=== PATIENT | male | born 1985 | race Caucasian/White ===

== ENCOUNTER 2016-08-30 09:28 | Emergency (ER) | payer OTHER ==
[~2016-08-30 09:28] MED LIST: TRAZODONE50 MG PO
[2016-08-30 09:35] VITALS: BP 119/79
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
== END 2016-08-30 11:17 ==
LOC: ERH
DX: F10.129 Alcohol abuse with intoxication, unspecified (principal)

== ENCOUNTER 2016-09-08 02:51 | Emergency (ER) | payer OTHER ==
[~2016-09-08] VITALS: Ht 182.9 cm; Wt 79.4 kg
--- NOTE | 2016-09-08 02:55 | ED AMS/SEIZURE/WEAK/DIZZY ---
History of Present Illness General Chief Complaint: Altered Mental Status Stated Complaint: AMS Source: patient Exam Limitations: no limitations Vital Signs & Intake/Output Vital Signs & Intake/Output Vital Signs Date Time Temp Pulse Resp B/P B/P Pulse O2 O2 Flow FiO2 Mean Ox Delivery Rate 09/08 0802 96.0 90 20 100/60 98 Room Air 09/08 0532 96.8 93 16 154/77 99 Nasal 3.0L Cannula 09/08 0419 102 16 173/91 100 Room Air 3.0L 09/08 0253 97.9 118 16 149/101 96 Nasal 3.0L Cannula Allergies Coded Allergies: NO KNOWN ALLERGIES (12/28/14) Reconcile Medications TRAZODONE HCL (Trazodone HCl) 50 MG TAB 1 TAB PO QHS Sleep Triage Nurses Notes Reviewed? yes Onset: Abrupt Duration: hour(s): Timing: recent history Injury Environment: home Severity: moderate Modifying Factors: Improves With: rest. Associated Symptoms: increased confusion HPI: 31-year-old gentleman brought in by ambulance due to mental status change, increased confusion. The medics state that his mother called the ambulance because of his increased confusion. The patient states that he drank alcohol, did ecstasy, did cocaine tonight. His mother found him confused and slightly agitated. (JACLYN CASH,BENJIE Burns) Past History Travel History Traveled to [place] past 21 day No Medical History Any Pertinent Medical History? see below for history Neurological: NONE EENT: NONE Cardiovascular: NONE Respiratory: NONE Gastrointestinal: NONE Hepatic: NONE Renal: NONE Musculoskeletal: NONE Psychiatric: NONE Endocrine: NONE Blood Disorders: NONE Cancer(s): NONE PASTRY ASSISTANT/Reproductive: NONE Surgical History Surgical History: N Psychosocial History Who do you live with Family Services at Home None What is your primary language Marshallese Family History Hx Contributory? No (JACLYN CASH,BENJIE Burns) Review of Systems Review of Systems Constitutional: Reports: no symptoms. EENTM: Reports: no symptoms. Respiratory: Reports: no symptoms. Cardiovascular: Reports: no symptoms. GI: Reports: no symptoms. Genitourinary: Reports: no symptoms. Musculoskeletal: Reports: no symptoms. Skin: Reports: no symptoms. Neurological/Psychological: Reports: no symptoms. Hematologic/Endocrine: Reports: no symptoms. Immunologic/Allergic: Reports: no symptoms. All Other Systems: Reviewed and Negative (JACLYN CASH,BENJIE Burns) Physical Exam Physical Exam General Appearance: agitated Head: atraumatic, normal appearance Eyes: Bilateral: normal appearance. Ears, Nose, Throat: normal pharynx, normal ENT inspection Neck: normal inspection, supple, full range of motion Respiratory: normal breath sounds, chest non-tender, no respiratory distress, quiet respiration, lungs clear Cardiovascular: regular rate/rhythm Gastrointestinal: normal bowel sounds, soft, non-tender Back: normal inspection, normal range of motion Extremities: normal range of motion, evidence of injury Neurologic/Psych: no motor/sensory deficits, awake, alert, agitated, disoriented , confused Core Measures ACS in differential dx? No CVA/TIA Diagnosis: No Severe Sepsis Present: No Septic Shock Present: No (JACLYN CASH,BENJIE Burns) Progress Differential Diagnosis: alcohol intoxication, CVA/stroke, dehydration, encephalitis, hypoglycemia, intracranial Hem., presyncope Plan of Care: Orders Procedure Date/time Status Regular Diet 09/08 B Active URINE DRUGS OF ABUSE 09/08 254 Complete ACETOMINOPHEN 09/08 254 Complete TROPONIN LEVEL 09/08 254 Complete SALICYLATE 09/08 254 Complete ETHANOL 09/08 254 Complete COMPREHENSIVE METABOLIC PANEL 09/08 254 Complete CBC WITHOUT DIFFERENTIAL 09/08 254 Complete EKG 09/08 254 Active Laboratory Tests 09/08/16 0421: Ref Lab Test Result Pending, Urine Opiates Screen < 100.00, Methadone Screen 44, Barbiturate Screen < 60, Ur Phencyclidine Scrn < 6.00, Amphetamines Screen , U Benzodiazepines Scrn > 800 H, Urine Cocaine Screen < 50, Urine Cannabis Screen < 5.00 09/08/16 0320: Anion Gap 15, Estimated GFR > 60, BUN/Creatinine Ratio 7.8, Glucose 88, Calcium 8.8, Total Bilirubin 0.7, AST 24, ALT 23, Alkaline Phosphatase 69, Troponin I < 0.01, Total Protein 7.6, Albumin 4.7, Globulin 2.9, Albumin/Globulin Ratio 1.6, CBC w Diff NO MAN DIFF REQ, RBC 5.25, MCV 91.8, MCH 30.9, RDW 14.6 H, MPV 8.3, Gran % 83.9 H, Lymphocytes % 10.2 L, Monocytes % 5.2, Eosinophils % 0.1, Basophils % 0.6, Absolute Granulocytes 10.9 H, Absolute Lymphocytes 1.3, Absolute Monocytes 0.7 H, Absolute Eosinophils 0, Absolute Basophils 0.1, PUBS MCHC 33.7, Salicylates < 1.0, Acetaminophen < 10.0 L, Serum Alcohol < 10.0 Diagnostic Imaging: Viewed by Me: CT Scan. Discussed w/RAD: CT Scan. Radiology Impression: head ct... neg Initial ED EKG: normal axis, normal intervals, normal p-waves, normal QRS complex, normal sinus rhythm Hand-Off Endorsed To: AKHIL ESTRELLA MD Endorsed Time: 0700 Comments: PATIENT: MARJORIE LIZAMA PRESENT AGE: 31 PATIENT ACCOUNT NO: [id number] : 85 LOCATION: [facility] ORDERING PHYSICIAN: BENJIE ANAYA MD SERVICE DATE: 09/08/16 EXAM TYPE: CAT - CT HEAD WO IV CONTRAST EXAMINATION: CT HEAD WITHOUT CONTRAST CLINICAL INFORMATION: Mental status change COMPARISON: None TECHNIQUE: Contiguous axial imaging was performed from the skull base to vertex without intravenous administration of contrast. DLP: 610.15 mGy-cm FINDINGS: There is no evidence of acute intracranial hemorrhage or territorial infarction. No abnormal mass effect or midline shift is seen. Ramirez to white matter differentiation is well preserved. No extra-axial fluid collections are identified. The ventricles are normal in size. There is no abnormal attenuation within the brain parenchyma. The osseous structures and soft tissues are normal. The mastoid air cells and visualized portions of the paranasal sinuses are well aerated. IMPRESSION: No acute intracranial pathology. DICTATED BY: ALBERT DOTY MD DATE/TIME DICTATED:09/08/16344 [employer] COACH:TENZIN DATE/TIME TRANSCRIBED:09/08/16344 CONFIDENTIAL, DO NOT COPY WITHOUT APPROPRIATE AUTHORIZATION. <Electronically signed in Other Vendor System> SIGNED BY: ALBERT DOTY MD 09/08/16 0352 (JACLYN CASH,BENJIE Burns) Comments: Awake and tired with steady gait (AKHIL ESTRELLA MD) Departure Departure Clinical Impression Primary Impression: Polysubstance abuse Referrals: PATIENT HAS NO PRIMARY CARE DR (PCP/Family) Departure Forms: Customer Survey General Discharge Information Comments 09/08/16, 6:36am... pt too somnolent to be aroused... vitals stable. pt to be re-evaluated in the AM. Pt signed out to dr. estrella at 7am, 09/08/16 (JACLYN CASH,BENJIE Burns) Departure Time of Disposition: 816 Disposition: HOME OR SELF CARE Condition: Stable (SAMEER CASH,AKHIL)
[2016-09-08 03:28] LABS: ABSOLUTE BASOPHIL COUNT 0.1 /CUMM (0.0-0.2); ABSOLUTE EOSINOPHIL COUNT 0 /CUMM (0.0-0.7); ABSOLUTE GRANULOCYTE CT 10.9 /CUMM (1.4-6.5); ABSOLUTE LYMPH COUNT 1.3 /CUMM (1.2-3.4); ABSOLUTE MONOCYTE COUNT 0.7 /CUMM (0.10-0.60); BASOPHIL % 0.6 % (0.0-2.0); EOSINOPHIL % 0.1 % (0-5); GRANULOCYTE % 83.9 % (42.2-75.2); HEMATOCRIT 48.2 % (42-52); MEAN CORPUSCULAR HGB 30.9 PG (27.0-31.0); MEAN CORPUSCULAR HGB CONC 33.7 G/DL (33.0-37.0); MEAN CORPUSCULAR VOLUME 91.8 FL (80.0-94.0); MEAN PLATELET VOLUME 8.3 FL (7.4-10.4); PLATELET COUNT 202 /CUMM (130-400); RBC DISTRIBUTION WIDTH 14.6 % (11.5-14.5); RED BLOOD CELL CT 5.25 /CUMM (4.70-6.10)
--- NOTE | 2016-09-08 03:52 | CT SCAN REPORT ---
EXAMINATION: CT HEAD WITHOUT CONTRAST CLINICAL INFORMATION: Mental status change COMPARISON: None TECHNIQUE: Contiguous axial imaging was performed from the skull base to vertex without intravenous administration of contrast. DLP: 610.15 mGy-cm FINDINGS: There is no evidence of acute intracranial hemorrhage or territorial infarction. No abnormal mass effect or midline shift is seen. Ramirez to white matter differentiation is well preserved. No extra-axial fluid collections are identified. The ventricles are normal in size. There is no abnormal attenuation within the brain parenchyma. The osseous structures and soft tissues are normal. The mastoid air cells and visualized portions of the paranasal sinuses are well aerated. IMPRESSION: No acute intracranial pathology.
[2016-09-08 08:02] VITALS: BP 100/60
== END 2016-09-08 08:21 ==
LOC: ERH 02:51
PROVIDERS: Pediatrics
DX: F10.10 Alcohol abuse, uncomplicated (principal); F14.10 Cocaine abuse, uncomplicated; F19.10 Other psychoactive substance abuse, uncomplicated
CPT/HCPCS: 80307; 93005; 93010; G0480